=== PATIENT | female | born 2000 | race Caucasian/White ===

== ENCOUNTER 2018-01-05 09:02 | Day surgery (SDC) | payer OTHER ==
[2018-01-04 11:15] VITALS: BMI 33.3
[~2018-01-05 09:02] MED LIST: Dexamethasone 20 MG/5 ML VIAL ONE; Ketorolac Tromethamine 30 MG/ML VIAL ONE; Lidocaine 1% PF 5 ML VIAL ONE; Ondansetron HCl/PF 4 MG/2 ML Vial ONE; PROPOFOL 200 MG/20 ML VIAL ONE
[2018-01-05] MEDS ORDERED: PROPOFOL 20 ML ONE (09:18)
[2018-01-05] MEDS ORDERED: Fentanyl 250 MCG/5 ML VIAL ONE (10:29)
--- NOTE | 2018-01-05 13:21 | OP ---
DATE OF PROCEDURE: 01/05/2018 PREOPERATIVE DIAGNOSIS: Anterior knee pain, right knee, cause unknown. POSTOPERATIVE DIAGNOSES: Significant amount of scar tissue in the notch and anterior portion of the knee including a scarred down fat pad as well as some scar tissue covering the posterior cruciate lig ament in the notch as well as some loose cartilage flaps on the apex of the patella. PROCEDURES PERFORMED: Knee arthroscopy, debridement and shaving. SURGEON: Felix Gonsalves M.D. GEOPHYSICAL MANAGER: None. BLOOD LOSS: Minimal. COMPLICATIONS: None. ANESTHESIA: She had a general anesthetic as well as a local knee block. DISPOSITION: She went to the recovery room in stable condition. INDICATIONS: A 17-year-old female who has been having anterior knee pain for a number of months and has failed to get better despite injection as well as therapy. At this time, opted for diagnostic sc ope. DESCRIPTION OF PROCEDURE: After all appropriate consent forms were explained and signed, she was ernesto en to the operating room and at this time was given general anesthetic. Once anesthesia was appropri ate, the tourniquet was placed on the right thigh and leg was placed in an arthroscopic leg chang. The limb was then prepped and draped in standard surgical fashion and was then exsanguinated and the tourniquet was taken up to 300 mmHg. An inferolateral portal was then established and the scope was placed into the knee joint. A needle localization technique was then used to make a medial working p ortal. Diagnostic arthroscopy commenced in the notch, the ACL and PCL were probed and found to be in tact. There did appear to be larger than normal synovial covering of the PCL and under direct visual ization when I would take her knee through 90-100 range of motion. This large chunk of stiff synovia l tissue would actually get pinched in the medial compartment. This was removed with the shaver and has removed this problem. There was a significant amount of scar tissue, anterior in the fat pad, wh ich was basically grabbing hold of the intermeniscal ligament and pulling it forward through range of motion. This fat pad scar tissue was removed and normal intermeniscal ligament was noted. ACL and PCL again were found to be intact. The medial compartment showed a medial meniscus to be completely intact. Tibia and femur were also in normal condition. At this time, we turned our attention to the lateral compartment. There was a small tissue that appeared to be off the most posterior horn of th e lateral meniscus, which was taken up into the notch. Again, this was removed and did not appear to remove much of the lateral meniscus, I am really quite unsure what this was, but the scar tissue was removed. The remaining lateral meniscus appeared to be completely intact. At this time, popliteus tendon was noted to be normal. Femur and tibia were noted to be normal and upon probing through the entire meniscus including the anterior horn, everything else was found to be normal. Lateral gutter was swept through. There were some beginnings of some lateral bone spurs on the femur and nothing wa s done to this except for taking a picture. No loose bodies were noted in the medial compartment as far as the medial gutter concerned was found to be in good condition. The patellofemoral joint found the patella to sit nicely in the trochlear groove and engaged at 30-40 degrees. It did not appear t o have any abnormal kinematics through a direct visualization. The proximal pole of the patella cart ilage was in excellent condition, but inferiorly on the apex of the patella, there was a lot of loose cartilage/scar tissue, this was removed again with the shaver and once this was done, it appeared no tissue was being impinged through full range of motion. At this time, we then went through the knee one more time, just flushing out, making sure there were no loose bodies or anything. We then remov ed the scope, drained the knee, and closed each portal with simple nylon stitch. Bulky sterile dress ing was applied and the tourniquet let down. Toes pinked up nicely. The patient was awakened and ta barbara to the recovery room in stable condition. All counts were correct at the end of the case and she received preoperative IV antibiotics.
== END 2018-01-05 14:50 | disposition home or self-care (01) ==
LOC: SDC 09:02
PROVIDERS: ATTEND Orthopaedic Surgery
PROC: 0SBC4ZZ Excision of Right Knee Joint, Percutaneous Endoscopic Approach (ICD-10-PCS; principal; 2018-01-05)
DX: M23.8X1 Other internal derangements of right knee (principal); J45.909 Unspecified asthma, uncomplicated; E66.9 Obesity, unspecified
CPT/HCPCS: 36415; 84702; G8978-GP-CL; G8979-GP-CL; G8980-GP-CL; J1100; J1885; J2001; J2405; J2704; J3010

== ENCOUNTER 2018-07-04 04:33 | Emergency (ER) | payer OTHER ==
[2018-07-04] MEDS ORDERED: Adacel (T-DAP) 0.5 ML VIAL ONE (04:55)
[2018-07-04] MEDS ORDERED: Lidocaine 2% PF 5 ML VIAL ONE ×2 (04:55→04:56)
[2018-07-04] MEDS ORDERED: Lidocaine 1% w/Epinephrine 1:100K 20 ML VIAL ONE (04:58)
[2018-07-04 05:16] LABS: #Eosinphils 0.1 thou/uL (0.0-0.7); #Lymphocytes 2.5 thou/uL (1.20-3.40); #Monocytes 0.4 thou/uL (0.11-0.59); #Neutrophils 4.8 thou/uL (1.40-6.50); %Basophils 0.5 % (0.0-1.0); %Eosinophils 1.7 % (0.0-10.0); %Monocytes 4.6 % (0.0-4.0); %Neutrophils 61.3 % (31.0-61.0); Hemoglobin 14.4 g/dL (12.0-16.0); Mean Corpuscular HGB CONC 34.3 g/dL (32.0-36.0); Mean Corpuscular Hemoglobin 31.2 pg (25.0-35.0); Mean Corpuscular Volume 90.9 fL (78.0-98.0); Mean Platelet Volume 7.8 fL (7.4-10.4); Platelet Count 215 thou/uL (130-400); RBC Distribution Width 12.2 % (11.5-14.5); Red Blood Cell (RBC) Count 4.63 mill/uL (4.00-5.20); White Blood Cell (WBC) Count 7.9 thou/uL (4.8-10.8)
[2018-07-04 05:19] LABS: BHCG - Serum Negative (NEGATIVE)
[2018-07-04 05:20] LABS: Pregs Control Background? CLEAR/WHITE (CLR/WHITE); Pregs Control Bar Appear? YES (CONTROL BAR)
[2018-07-04 05:34] LABS: ALT (SGPT) 15 U/L (8-55); AST (SGOT) 15 U/L (5-34); Albumin 4.3 g/dL (3.5-5.0); Alkaline Phosphatase 61 U/L (40-150); Anion Gap 13 mmol/L (10-20); BUN (Urea Nitrogen) 10 mg/dL (7.0-18.7); Bilirubin, Total 0.4 mg/dL (0.2-1.2); Calc. Creatinine Clearance 0 mL/min (70-130); Calcium 8.8 mg/dL (7.8-10.44); Carbon Dioxide 22 mmol/L (22-29); Chloride 110 mmol/L (98-107); Estimated GFR-MDRD Greater than 90; Globulin 2.7 g/dL (2.4-3.5); Glucose 95 mg/dL (70-105); Potassium 3.6 mmol/L (3.5-5.1); Sodium 141 mmol/L (136-145)
[2018-07-04 05:35] LABS: Acetaminophen Less than 6.0 mcg/mL (10.0-30.0); Alcohol 96 mg/dL (Less than 10); CK (CPK) 155 U/L (29-168); Salicylate Less than 8.0 mg/dL (15.0-30.0)
[2018-07-04 05:46] LABS: Thyroid Stimulating Hormone 1.3962 uIU/mL (0.35-4.94)
[2018-07-04] MEDS ORDERED: Bacitracin Zinc 1 Packet ONE (05:57)
[2018-07-04 06:40] LABS: Bilirubin Negative (Negative); Blood, Urine Negative (Negative); Clarity CLEAR (Clear); Glucose, Urine (Dipstick) Negative (Negative); Leukocyte Negative (Negative); Nitrite Negative (Negative); Protein, Urine (Dipstick) Negative (Neg-Trace); Urobilinogen 0.2 mg/dL (0.2-1.0)
[2018-07-04 06:42] LABS: Amphetamine Not Detected (NotDetected); Barbiturates Screen Not Detected (NotDetected); Benzodiazepine Screen Not Detected (NotDetected); Cocaine Metabolite Screen Not Detected (NotDetected); Medtox Control Line Valid? VALID (VALID); Medtox Reader # READER 4; Methadone Not Detected (NotDetected); Methamphetamine Not Detected (NotDetected); Opiate Screen Not Detected (NotDetected); Oxycodone Screen Not Detected (NotDetected); Phencyclidine (PCP) Not Detected (NotDetected); THC/Cannabinoid Screen Detected (NotDetected); Tricyclic Screen Not Detected (NotDetected)
--- NOTE | 2018-07-05 13:51 | EKG ---
Test Reason : Blood Pressure : / mmHG Vent. Rate : 060 BPM Atrial Rate : 060 BPM P-R Int : 118 ms QRS Dur : 096 ms QT Int : 432 ms P-R-T Axes : 025 018 024 degrees QTc Int : 432 ms Normal sinus rhythm with sinus arrhythmia Normal ECG Confirmed by CAROL GRIGGS D.O. ([id number]), video news editor IONA COKER ([id number] on 07/05/2018 1:51:27 PM Referred By: Confirmed By:CAROL GRIGGS D.O.
== END 2018-07-04 12:58 | disposition home or self-care (01) ==
LOC: ERS 04:33
DX: S61.512A Laceration without foreign body of left wrist, initial encounter (principal); F43.20 Adjustment disorder, unspecified; F41.9 Anxiety disorder, unspecified; F32.9 Major depressive disorder, single episode, unspecified; Z23 Encounter for immunization; X78.1XXA Intentional self-harm by knife, initial encounter
CPT/HCPCS: 12002; 36415; 80053; 80306; 80307; 81003; 82550; 84443; 84703; 85025; 90471; 90715; 93005; J2001

== ENCOUNTER 2019-06-09 10:26 | Emergency (ER) | payer OTHER, SELFPAY ==
[2019-06-09 11:03] LABS: #Eosinphils 0.2 thou/uL (0.0-0.7); #Lymphocytes 1.7 thou/uL (1.20-3.40); #Monocytes 0.5 thou/uL (0.11-0.59); #Neutrophils 6.9 thou/uL (1.40-6.50); %Basophils 0.4 % (0.0-1.0); %Eosinophils 1.8 % (0.0-10.0); %Lymphocytes 18.1 % (21.0-51.0); %Monocytes 5.8 % (0.0-10.0); %Neutrophils 73.8 % (42.0-75.0); Hemoglobin 15.1 g/dL (12.0-16.0); Mean Corpuscular HGB CONC 34.4 g/dL (32.0-36.0); Mean Corpuscular Hemoglobin 32.2 pg (27.0-31.0); Mean Corpuscular Volume 93.6 fL (78.0-98.0); Mean Platelet Volume 7.9 fL (7.4-10.4); Platelet Count 183 thou/uL (130-400); Red Blood Cell (RBC) Count 4.69 mill/uL (4.20-5.40); White Blood Cell (WBC) Count 9.3 thou/uL (4.8-10.8)
[2019-06-09 11:16] LABS: Bilirubin Negative (Negative); Blood, Urine Negative (Negative); Glucose, Urine (Dipstick) Negative (Negative); Leukocyte Moderate (Negative); Nitrite Negative (Negative); Protein, Urine (Dipstick) Negative (Neg-Trace); Urobilinogen 0.2 mg/dL (Less than 2)
[2019-06-09 11:18] LABS: Clarity Clear (Clear); Pregnancy Test - Urine (BHCG) Negative (Negative); Pregu Control Background? CLEAR/WHITE (CLR/WHITE); Pregu Control Bar Appear? YES (CONTROL BAR); Specific Gravity 1.015 (1.002-1.036)
[2019-06-09] MEDS ORDERED: Ketorolac Tromethamine 30 MG/ML VIAL ONE (11:21)
[2019-06-09] MEDS ORDERED: Morphine 4 MG/ML VIAL ONE ×2 (11:21→14:49)
[2019-06-09 11:23] LABS: Bacteria/HPF None Seen HPF (None Seen); RBC/HPF None Seen HPF (0-3); Squamous Epithelial 0-3 HPF (0-3)
[2019-06-09 11:24] LABS: ALT (SGPT) 15 U/L (8-55); AST (SGOT) 31 U/L (5-34); Albumin 4.1 g/dL (3.5-5.0); Alkaline Phosphatase 58 U/L (40-150); Anion Gap 11 mmol/L (10-20); BUN (Urea Nitrogen) 7 mg/dL (7.0-18.7); Bilirubin, Total 0.4 mg/dL (0.2-1.2); Calc. Creatinine Clearance 0 mL/min (70-130); Calcium 8.9 mg/dL (7.8-10.44); Carbon Dioxide 24 mmol/L (22-29); Chloride 107 mmol/L (98-107); Estimated GFR-MDRD Greater than 90; Globulin 2.9 g/dL (2.4-3.5); Glucose 102 mg/dL (70-105); Lipase 11 U/L (8-78); Potassium 3.9 mmol/L (3.5-5.1); Sodium 138 mmol/L (136-145)
--- NOTE | 2019-06-09 11:56 | CT ---
EXAM: CT ABDOMEN AND PELVIS HISTORY: Abdominal pain. Cramping. COMPARISON: None. Procedure: Multiple contiguous axial images were obtained and a CT of the abdomen and pelvis with IV contrast. C oronal reformats were performed. FINDINGS: Lower Chest: within normal limits. Vessels: Normal caliber aorta Heart: Normal heart size. No pericardial fluid Abdomen: Portal vein:Patent Gallbladder: No calcified gallstones. Normal caliber wall. Liver: within normal limits. Pancreas: within normal limits. Spleen: within normal limits. Adrenals: within normal limits. Kidneys: within normal limits. Peritoneum: Decreased visceral fat limits evaluation for inflammatory change. No obvious ascites, mas s, free air or free fluid Bowel: Limited evaluation due to technique. No evidence of bowel obstruction. Normal caliber appendix . Unremarkable colon. Mesentery and Retroperitoneum: No enlarged mesenteric or retroperitoneal lymph nodes. Abdominal Wall: within normal limits. Pelvis: Reproductive Organs: Note is made of an intrauterine device. Left adnexa is unremarkable. 2.9 x 2.8 c m hypodensity in the right adnexa may represent a complex ovarian cyst. Pelvis: Trace amount of free fluid in the pelvis, presumed to be physiologic Bladder: within normal limits. Bones: No evidence of osseous abnormalities. Symmetric appearing hip joint spaces. IMPRESSION: 1. No acute abnormality in the abdomen. 2. Hypodensity in the right adnexa, compatible with a complex right ovarian cyst. Pelvic ultrasound i f clinically warranted.
--- NOTE | 2019-06-09 12:15 | CT ---
Exam: CT lumbar spine without contrast HISTORY: Pain line findings: 5 lumbar type vertebral bodies. Lumbar spine vertebral body height is maintained. No fracture. No spondylolisthesis or spondylolysis. Straightening of normal lumbar lordosis. Slightly decreased AP diameter of the central spinal canal secondary to congenitally foreshortened pe dicles. Minimal irregularity involving the superior endplate of T11 and T12 1 represent Schmorl's nodes. Suad lar Schmorl's node along the superior endplate of T11. Limited evaluation of the contents of the central spinal canal and neural foramina due to technique T10-T11, T11-T12 T12-L1: No high-grade central canal stenosis or high-grade foraminal narrowing L1-L2: No significant central canal stenosis or significant foraminal narrowing L2-L3: Broad-based disc bulge results in mild canal stenosis. No significant neural foraminal narrowi ng L3-L4: No significant central canal stenosis or significant neural foraminal narrowing L4-L5: Minimal flattening of the thecal sac secondary to broad-based disc bulge. No significant centr al canal stenosis. Mild bilateral foraminal narrowing L5-S1: No significant central canal stenosis or significant neural foraminal narrowing. IMPRESSION: 1. No fracture. No spondylolisthesis or spondylolysis. Straightening of normal lumbar lordosis may be due to patient position or muscle spasm. 2. Decreased AP diameter of the central spinal canal secondary to congenitally foreshortened pedicles . Degenerative changes as described above. No evidence of significant central canal stenosis or significant neural foraminal narrowing.
[2019-06-09] MEDS ORDERED: ISOVUE-370 76%-LOCM 1 ML ONE (13:56)
[2019-06-09] MEDS ORDERED: Dexamethasone 10 MG/ML VIAL ONE (14:49)
--- NOTE | 2019-06-09 15:37 | ULT ---
PELVIC ULTRASOUND: HISTORY: Right pelvic pain. COMPARISON: None. TECHNIQUE: Transabdominal endovaginal imaging of the pelvis is performed. The ovaries are interrogated with gra y-scale, color-flow, Doppler imaging, and spectral wave-form analysis. FINDINGS: The uterus identified, measuring 3 x 5 x 7.5 cm. No myometrial masses. Echogenic material within th e endometrium, compatible with an intrauterine device. Endometrial diameter is 0.4 cm. The left ovary is not appreciated. There is a small amount of free fluid in the cul-de-sac. IMPRESSION: 1. Sonographic evidence of an intrauterine device. 2. Isoechoic focus in the right adnexa, as described above. This may represent a complex or hemorrh agic cyst occupying the entire ovary. Limited evaluation. Better interrogation with pelvic MRI is r ecommended, given the patient's history of one week of right-sided pelvic pain. Consider gynecologic al consultation. POS: JOE
== END 2019-06-09 13:15 | disposition home or self-care (01) ==
LOC: ERS 10:26
DX: N83.291 Other ovarian cyst, right side (principal); M51.9 Unspecified thoracic, thoracolumbar and lumbosacral intervertebral disc disorder; F41.9 Anxiety disorder, unspecified; F32.9 Major depressive disorder, single episode, unspecified
CPT/HCPCS: 72131; 74177; 76856; 80053; 81003; 81015; 81025; 83690; 85025; 93976; 96374; 96375; 96376; J1100; J1885; J2270; Q9966

== ENCOUNTER 2021-05-15 18:30 | Emergency (ER) | payer OTHER ==
[2021-05-15 19:18] LABS: #Eosinphils 0.3 thou/uL (0.0-0.7); #Lymphocytes 1.1 thou/uL (1.20-3.40); #Monocytes 0.4 thou/uL (0.11-0.59); #Neutrophils 7.8 thou/uL (1.40-6.50); %Basophils 0.2 % (0.0-1.0); %Eosinophils 3.2 % (0.0-10.0); %Monocytes 4.1 % (0.0-10.0); %Neutrophils 81.5 % (42.0-75.0); Hemoglobin 14.4 g/dL (12.0-16.0); Mean Corpuscular HGB CONC 34.1 g/dL (32.0-36.0); Mean Corpuscular Hemoglobin 33.1 pg (27.0-31.0); Mean Corpuscular Volume 97.1 fL (78.0-98.0); Platelet Count 203 thou/uL (130-400); RBC Distribution Width 11.6 % (11.5-14.5); Red Blood Cell (RBC) Count 4.36 mill/uL (4.20-5.40); White Blood Cell (WBC) Count 9.6 thou/uL (4.8-10.8)
[2021-05-15 19:26] LABS: BHCG - Serum Negative (NEGATIVE); Pregs Control Background? CLEAR/WHITE (CLR/WHITE); Pregs Control Bar Appear? YES (CONTROL BAR)
[2021-05-15 19:33] LABS: Chloride 106 mmol/L (98-107); Potassium 3.8 mmol/L (3.5-5.1); Sodium 139 mmol/L (136-145)
[2021-05-15 19:50] LABS: ALT (SGPT) 11 U/L (8-55); AST (SGOT) 16 U/L (5-34); Albumin 4.4 g/dL (3.5-5.0); Alkaline Phosphatase 54 U/L (40-110); Anion Gap 12 mmol/L (10-20); BUN (Urea Nitrogen) 14 mg/dL (7.0-18.7); Bilirubin, Total 0.5 mg/dL (0.2-1.2); Calc. Creatinine Clearance 0 mL/min (70-130); Calcium 9.1 mg/dL (7.8-10.44); Carbon Dioxide 24 mmol/L (22-29); Globulin 3.1 g/dL (2.4-3.5); Glucose 100 mg/dL (70-105); Lipase 22 U/L (8-78); Protein, Total 7.5 g/dL (6.0-8.3)
[2021-05-15 19:54] LABS: Bilirubin Negative (Negative); Blood, Urine 3+ (Negative); Clarity Turbid (Clear); Glucose, Urine (Dipstick) Normal (Negative); Ketone, Urine Negative (Negative); Leukocyte 75 Leu/uL (Negative); Mucous/LPF Rare LPF (<2+); Nitrite Negative (Negative); Protein, Urine (Dipstick) 30 mg/dL (Neg-Trace); Specific Gravity, Urine 1.042 (1.002-1.036); Squamous Epithelial 21-50 HPF (0-3); Urobilinogen Normal mg/dL (Less than 2)
[2021-05-15 19:59] LABS: Bacteria/HPF 1+ HPF (None Seen)
== END 2021-05-15 20:10 | disposition home or self-care (01) ==
LOC: ERS 18:30
DX: K58.9 Irritable bowel syndrome, unspecified (principal)
CPT/HCPCS: 36415; 80053; 81003; 81015; 83605; 83690; 84703; 85025; 99284